=== PATIENT | female | born 1950 | race Two or more races ===

== ENCOUNTER 2018-06-22 14:21 | Emergency (ER) | payer OTHER ==
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
[2018-06-22 14:47] VITALS: BP 162/72; PULSE 75; TEMP 98.1; BMI 35.7
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
== END 2018-06-22 15:59 | disposition home or self-care (01) ==
LOC: JERFT 14:21
DX: M25.562 Pain in left knee (principal)
CPT/HCPCS: 73562-TC-LT-FY; 99281-25

== ENCOUNTER → 2018-12-12 | Day surgery (SDC) | payer OTHER | END | disposition home or self-care (01) | LOC: FMAMMOTONE 08:31 | PROVIDERS: ATTEND Internal Medicine Geriatric Medicine | PROC: 0HBU3ZX Excision of Left Breast, Percutaneous Approach, Diagnostic (ICD-10-PCS; principal; 2018-12-12) | DX: N60.12 Diffuse cystic mastopathy of left breast (principal); N60.31 Fibrosclerosis of right breast; N64.89 Other specified disorders of breast; R92.1 Mammographic calcification found on diagnostic imaging of breast | CPT/HCPCS: 19081; 87899; 88305-TC; A4648 ==